=== PATIENT | male | born 1935 | race Caucasian/White ===

== ENCOUNTER 2021-09-23 01:12 | Observation (INO) | payer OTHER, SELFPAY ==
[2021-09-23] VITALS (18 sets, daily range): BP systolic 112–185; BP diastolic 57–88; PULSE 68–99; RESP 16–23; TEMP 35.7–36.9; O2SAT 95–99; BMI 24.6
--- NOTE | 2021-09-23 01:23 | ED_ITS ---
HPI - Neuro Symptoms/Deficit General Chief Complaint: Neuro Symptoms/Deficit Stated Complaint: might of had a stroke Time Seen by Provider: 09/23/21 01:18 History of Present Illness HPI Narrative: Patient is a pleasant 86-year-old hard of hearing male who has history of diabetes, coronary artery disease with 4 stents, presents with possible stroke. He lives with daughter who states that their mother has had a stroke so they are aware of signs and symptoms. Sometime this evening around 11:00 p.m. she noted that he was a little bit off and she asked him to check his glucose. He had loss of difficulty with his left hand using the glucometer and glucose strips. His she then noticed that he had some left facial droop and garbled speech. Symptoms lasted very briefly under 10 minutes and they have completely resolved now. He took some convincing to come to the ED for evaluation. He now states that he feels fine. He is not taking any aspirin or anti-platelet medication. Related Data Home Medications Medication Instructions Recorded Confirmed finasteride 5 mg tablet 5 mg PO DAILY 09/23/21 09/23/21 metoprolol succinate 25 mg 12.5 mg PO BID 09/23/21 09/23/21 tablet,extended release 24 hr simvastatin 40 mg tablet 40 mg PO BEDTIME 09/23/21 09/23/21 Allergies Allergy/AdvReac Type Severity Reaction Status Date / Time No Known Drug Allergies Allergy Verified 09/23/21 01:23 Review of Systems Review of Systems Narrative: GENERAL: Denies chills, fatigue, malaise, fever, sweats, travel HEENT: Denies sinus pain, ear pain, sore throat, difficulty swallowing, neck pain RESPIRATORY: Denies dyspnea, cough, wheezing, hemoptysis, sputum. CARDIOVASCULAR: Denies chest pain, palpitations, orthopnea, edema GASTROINTESTINAL: Denies nausea, vomiting, abdominal pain, diarrhea, constipation, melena. : Denies dysuria, frequency, incontinence, hematuria, urinary retention, flank pain. MUSCULOSKELETAL: Denies weakness, joint pain, or bony pain SKIN: No rash, no erythema, no pruritus NEUROLOGIC: See HPI PSYCHIATRIC: No concerning psychosocial issues. 12 point review of systems is negative except for those stated above and HPI Patient History Medical History (Updated 09/23/21 @ 05:11 by FRANKIE Schreiber) Dyslipidemia Essential hypertension Type 1 diabetes Surgical History (Updated 09/23/21 @ 05:11 by FRANKIE Schreiber) Circumcision complication Hx of heart artery stent Social History Smoking Status: Never smoker alcohol intake: never Exam Initial Vital Signs Initial Vital Signs: Vital Signs Temperature 97.7 F 09/23/21 01:20 Pulse Rate 91 H 09/23/21 01:20 Respiratory Rate 17 09/23/21 01:20 Blood Pressure 112/58 L 09/23/21 01:20 Pulse Oximetry 97 09/23/21 01:20 Oxygen Delivery Method 09/23/21 01:20 GENERAL: Alert pleasant 86-year-old male HEENT: Head atraumatic,EOMI, pupils reactive, face symmetric, moist mucous membranes CARDIOVASCULAR: Regular rate and rhythm without murmurs, rubs or gallops. RESPIRATORY: Breath sounds equal bilaterally, no wheezes rales or rhonchi. ABDOMEN: Soft, nontender. Normoactive bowel sounds all 4 quadrants. No guarding or rebound. EXTREMITIES: Normal range of motion, no clubbing or edema. Neurovascularly intact NEUROLOGICAL: Alert and oriented x4.Normal gait and speech. Cranial nerves II through XII grossly intact. Good qbwrsm-[id number], good riqh-[id number], strength equal bilaterally, no dysarthria or aphasia, sensation in tact to soft touch bilaterally, no visual changes, no facial droop SKIN: Warm, dry, no laceration, no petechiae, no rashes or lesions. Scores NIH Stroke Scale Level of Conciousness: Alert, keenly responsive Ask month/age: Answers both questions correctly. Open/close eyes, close hand: Performs both tasks correctly Best gaze horizontal: Normal Visual hoang: No visual loss Facial palsy: Normal symetrical movement Left arm drift: No drift for full 10 sec Right arm drift: No drift for full 10 sec Left leg drift: No drift for full 5 sec Right leg drift: No drift for full 5 sec Limb ataxia: Absent Sensory on face/arms/legs: Normal, no sensory loss Best language: No aphasia, normal Dysarthria: Normal Extinction or inattention: No abnormality Total NIH Stroke scale score: 0 Course Orders Ordered: ED Orders 09/23/21 01:23 Complete Blood Count AUTO DIFF Stat Comprehensive Metabolic Panel Stat Troponin & CK Cardiac Panel Stat 09/23/21 01:34 CT angio head and neck Stat CT head/brain wo con Stat 09/23/21 01:35 Chest [XR chest 1V] Stat 09/23/21 03:19 Urinalysis and Microscopic Stat Urine Drug Screen, Rapid Stat Acetaminophen (Acetaminophen 325 Mg Tablet) 650 mg PO Q6HR PRN PRN Reason: Fever/Mild Pain (1-3) Aspirin (Aspirin Ec 81 Mg Tablet) 81 mg PO DAILY [facility] Atorvastatin Calcium (Atorvastatin 20 Mg Tablet) 80 mg PO BEDTIME [facility] Clopidogrel Bisulfate (Clopidogrel 75 Mg Tablet) 75 mg PO DAILY A[facility] Dextrose (Dextrose 50 % In Water 25 Gm/50 Ml Syringe) 25 gm IV PRN PRN PRN Reason: Hypoglycemia Enoxaparin Sodium (Enoxaparin 40 Mg/0.4 Ml Syringe) 40 mg SUBCUT DAILY [facility] Insulin Glargine (Insulin Glargine 100 Unit/Ml 3ml Pen) 26 unit SUBCUT BEDTIME [facility] Insulin Human Lispro (Insulin Lispro 100 Unit/Ml 3ml Vial) 0 unit SUBCUT ACHS ADEOLA; Protocol Naloxone HCl (Naloxone 0.4 Mg/Ml Vial) 0.2 mg IV Q2MIN PRN PRN Reason: Opiate Reversal Discontinued Medications Aspirin (Aspirin 81 Mg Chew Tab) 324 mg PO NOW ONE Stop: 09/23/21 03:54 Last Admin: 09/23/21 03:59 Dose: 324 mg Documented By: TEAGAN Vital Signs Vital signs: Vital Signs - 8 hr 09/23/21 01:20 09/23/21 01:20 09/23/21 01:30 Temperature 97.7 F Pulse Rate 91 H 96 H 89 Respiratory Rate 17 Blood Pressure 112/58 L Pulse Oximetry 97 95 97 Oxygen Delivery Method Room Air 09/23/21 01:37 09/23/21 01:37 09/23/21 02:00 Temperature Pulse Rate 86 Respiratory Rate Blood Pressure 150/73 H 113/58 L Pulse Oximetry 98 Oxygen Delivery Method 09/23/21 02:00 09/23/21 02:27 09/23/21 02:27 Temperature Pulse Rate 80 80 Respiratory Rate 20 Blood Pressure 159/77 H Pulse Oximetry 98 98 Oxygen Delivery Method 09/23/21 02:30 09/23/21 02:30 09/23/21 03:00 Temperature Pulse Rate 79 81 Respiratory Rate Blood Pressure 150/74 H Pulse Oximetry 99 97 Oxygen Delivery Method 09/23/21 03:01 09/23/21 03:01 09/23/21 03:17 Temperature Pulse Rate 81 Respiratory Rate Blood Pressure 154/68 H 166/72 H Pulse Oximetry 97 Oxygen Delivery Method 09/23/21 03:17 09/23/21 03:30 09/23/21 03:31 Temperature Pulse Rate 99 H 84 85 Respiratory Rate 23 23 20 Blood Pressure Pulse Oximetry 96 96 96 Oxygen Delivery Method 09/23/21 03:31 Temperature Pulse Rate Respiratory Rate Blood Pressure 118/57 L Pulse Oximetry Oxygen Delivery Method MDM - Neuro Symptoms/Deficit Lab Data Result diagrams: 09/23/21 01:23 09/23/21 01:23 Labs: Lab Results 09/23/21 09/23/21 09/23/21 Range/Units 01:23 01:23 01:23 WBC 9.8 (4.5-11.0) X10^3/uL RBC 4.09 L (4.5-5.9) X10^6/uL Hgb 12.6 L (13.5-17.5) g/dL Hct 36.4 L (41-53) % MCV 88.8 (80-100) fL MCH 30.8 (26-34) PG MCHC 34.7 (30-36) % RDW 13.8 (11.6-14.8) % Plt Count 252 (150-400) X10^3/uL Neut % (Auto) 55.3 (50-75) % Lymph % (Auto) 27.5 (25-40) % [place] % (Auto) 12.8 (3-14) % Eos % (Auto) 3.5 (2-4) % Baso % (Auto) 0.9 (0-2) % Neut # (Auto) 5400 (4413-5911) /uL Lymph # (Auto) 2700 (0346-8995) /uL [place] # (Auto) 1300 H (0-900) /uL Eos # (Auto) 300 (0-450) /uL Baso # (Auto) 100 (0-100) /uL Sodium 130 L (137-145) mmol/L Potassium 4.4 (3.4-5.1) mmol/L Chloride 99 (98-107) mmol/L Carbon Dioxide 19 L (22-32) mmol/L BUN 37 H (9-20) mg/dL Creatinine 1.84 H (0.66-1.25) mg/dL Estimated GFR 35 L (>60) mL/min BUN/Creatinine Ratio 20.1 (6-22) Glucose 148 H (80-110) mg/dL Calcium 9.2 (8.4-10.2) mg/dL Total Bilirubin 0.7 (0.2-1.3) mg/dL AST 33 (17-59) IU/L ALT 22 (<50) IU/L Alkaline Phosphatase 93 (38-126) U/L Total Creatine Kinase 99 (55-170) U/L CK-MB (CK-2) TNP CK-MB (CK-2) Rel Index TNP Troponin I < 0.012 (0.01-0.034) ng/mL Total Protein 7.5 (6.3-8.2) g/dL Albumin 3.8 (3.5-5.0) g/dL Globulin 3.7 (1.7-4.1) g/dL Albumin/Globulin Ratio 1.0 (1.0-2.8) Urine Color Urine Appearance Urine pH (4.5-8.0) Ur Specific [place] (1.000-1.035) Urine Protein (Negative) Urine Glucose (UA) (Negative) g/dL Urine Ketones (NEGATIVE) Urine Occult Blood (Negative) Urine Nitrate (Negative) Urine Bilirubin (NEGATIVE) Urine Urobilinogen (0.2) E.U./dL Ur Leukocyte Esterase (NEGATIVE) Urine RBC (0-5/HPF) Urine WBC (0-5/HPF) Urine Bacteria (None) Ur Culture Indicated? U Opiates 300ng/mL cut (Negative) Ur Oxycodone Screen (Negative) Urine Methadone Screen (Negative) Ur Barbiturates Screen (Negative) U Tricyclic Antidepress (Negative) Ur Phencyclidine Scrn (Negative) Ur Amphetamines Screen (Negative) U Methamphetamines Scrn (Negative) Ur MDMA Scrn (Ecstasy) (Negative) U Benzodiazepines Scrn (Negative) Urine Cocaine Screen (Negative) U Marijuana (THC) Screen (Negative) 09/23/21 09/23/21 Range/Units 03:19 03:19 WBC (4.5-11.0) X10^3/uL RBC (4.5-5.9) X10^6/uL Hgb (13.5-17.5) g/dL Hct (41-53) % MCV (80-100) fL MCH (26-34) PG MCHC (30-36) % RDW (11.6-14.8) % Plt Count (150-400) X10^3/uL Neut % (Auto) (50-75) % Lymph % (Auto) (25-40) % [place] % (Auto) (3-14) % Eos % (Auto) (2-4) % Baso % (Auto) (0-2) % Neut # (Auto) (9455-8969) /uL Lymph # (Auto) (5830-5638) /uL [place] # (Auto) (0-900) /uL Eos # (Auto) (0-450) /uL Baso # (Auto) (0-100) /uL Sodium (137-145) mmol/L Potassium (3.4-5.1) mmol/L Chloride (98-107) mmol/L Carbon Dioxide (22-32) mmol/L BUN (9-20) mg/dL Creatinine (0.66-1.25) mg/dL Estimated GFR (>60) mL/min BUN/Creatinine Ratio (6-22) Glucose (80-110) mg/dL Calcium (8.4-10.2) mg/dL Total Bilirubin (0.2-1.3) mg/dL AST (17-59) IU/L ALT (<50) IU/L Alkaline Phosphatase (38-126) U/L Total Creatine Kinase (55-170) U/L CK-MB (CK-2) CK-MB (CK-2) Rel Index Troponin I (0.01-0.034) ng/mL Total Protein (6.3-8.2) g/dL Albumin (3.5-5.0) g/dL Globulin (1.7-4.1) g/dL Albumin/Globulin Ratio (1.0-2.8) Urine Color Yellow Urine Appearance Clear Urine pH 6.5 (4.5-8.0) Ur Specific [place] <=1.005 (1.000-1.035) Urine Protein Negative (Negative) Urine Glucose (UA) Trace H (Negative) g/dL Urine Ketones Negative (NEGATIVE) Urine Occult Blood 1+ H (Negative) Urine Nitrate Negative (Negative) Urine Bilirubin Negative (NEGATIVE) Urine Urobilinogen 0.2 (0.2) E.U./dL Ur Leukocyte Esterase Negative (NEGATIVE) Urine RBC None seen (0-5/HPF) Urine WBC None seen (0-5/HPF) Urine Bacteria None seen (None) Ur Culture Indicated? Cult not indicated U Opiates 300ng/mL cut Negative (Negative) Ur Oxycodone Screen Negative (Negative) Urine Methadone Screen Negative (Negative) Ur Barbiturates Screen Negative (Negative) U Tricyclic Antidepress Negative (Negative) Ur Phencyclidine Scrn Negative (Negative) Ur Amphetamines Screen Negative (Negative) U Methamphetamines Scrn Negative (Negative) Ur MDMA Scrn (Ecstasy) Negative (Negative) U Benzodiazepines Scrn Negative (Negative) Urine Cocaine Screen Negative (Negative) U Marijuana (THC) Screen Negative (Negative) Urine Dip Bedside Urine Glucose Negative Bedside Urine Bilirubin - Negative Bedside Urine Ketone - Negative Urine Specific [place] 1.010 Bedside Urine Occult Blood +/- Bedside Urine pH 6.0 Bedside Urine Protein - Negative Bedside Urine Urobilinogen - Negative Bedside Urine Nitrite - Negative Bedside Urine Leukocytes - Negative Esterase Imaging Data CT scan - head: Radiologist's Impression: No acute intracranial finding CTA - brain/neck: Radiologist's Impression: Pain head and neck CTA Chest x-ray: Radiologist's Impression: No acute finding ECG Data Interpretation: Normal sinus rhythm rate 82 VT interval 178 QRS [address] changes MDM Narrative Medical decision making narrative: Patient is risk for TIA and stroke. He has diabetes and coronary artery disease. He is not taking aspirin daily. Based on history he probably had a TIA. However symptoms have resolved he is no longer a tPA candidate. Imaging and workup in the emergency department is overall reassuring. He is given aspirin in the ED. Catalina Fisher accepts for observation Discharge Plan Departure Patient Disposition: Admitted as Observation Clinical Impression: Transient cerebral ischemia Admit Date/Time: 09/23/21 03:39 Admit Provider: Albertina Fisher
--- NOTE | 2021-09-23 01:34 | DI.CT.S_ITS ---
PROCEDURE: CT HEAD/BRAIN WO CON INDICATIONS: left hand weakness now resolved TECHNIQUE: Noncontrast 4.5 mm thick angled axial sections acquired from the foramen magnum to the vertex, with coronal and sagittal reformats. For radiation dose reduction, the following was used: automated exposure control, adjustment of mA and/or kV according to patient size. COMPARISON: [facility], CT, CT ANGIO HEAD AND NECK, 09/23/2021, 1:38. [facility], MR, MR BRAIN WITHOUT CONTRAST, 05/31/2018, 12:43. FINDINGS: Image quality: Excellent. CSF spaces: Basal cisterns are patent. No extra-axial fluid collections. The ventricles are symmetric in size and shape. Brain: No intracranial bleeds or masses. There is cerebral volume loss for age, with resultant ventricular and sulcal prominence. There are periventricular and deep white matter chronic small vessel ischemic changes. There is intracranial internal carotid artery and vertebral artery atherosclerosis. Skull and face: Calvarium and visualized facial bones appear intact, without suspicious lesions. Sinuses: Visualized sinuses and mastoids are clear. IMPRESSION: No acute intracranial disease process. Dictated by: Gloria Resendez MD, PhD on 09/23/2021 at 7:30 Approved by: Gloria Resendez MD, PhD on 09/23/2021 at 7:31
--- NOTE | 2021-09-23 01:34 | DI.CT.S_ITS ---
PROCEDURE: CT ANGIO HEAD AND NECK INDICATIONS: left hand weakness now resolved TECHNIQUE: After the administration of intravenous contrast, 1 mm thick sections acquired from the aortic arch through the [place] of [place]. Post-contrast 4.5 mm thick sections then re-acquired from the foramen magnum to the vertex. 3-dimensional vaxhbdw-kgqntbkjh-wlaqnaehur (MIP) and/or volume rendering reformats were acquired of the central intracranial vasculature and neck separately. For radiation dose reduction, the following was used: automated exposure control, adjustment of mA and/or kV according to patient size. COMPARISON: [facility], CT, CT HEAD/BRAIN WO CON, 09/23/2021, 1:38. FINDINGS: Image quality: Excellent. BRAIN: CSF spaces: Ventricles are normal in size and shape. Basal cisterns are patent. No extra-axial fluid collections. Brain: No midline shift. No intracranial bleeds or masses. [place]-white matter interface appears intact. Skull and face: Calvarium and facial bones appear intact, without suspicious lesions. Orbits appear normal. Sinuses: Mild mucosal thickening noted in the left maxillary sinus. The mastoids are clear. HEAD CT ANGIOGRAPHY: Anterior circulation: Intracranial internal carotid arteries are normal in flow. Dense atherosclerotic calcifications noted distal petrous, cavernous and clinoid segments of the internal carotid arteries bilaterally which causes [id number] narrowing of the vessels. The flow within the paired anterior cerebral arteries is normal and symmetric. The flow within the middle cerebral arteries is normal and symmetric. The anterior communicating artery is seen. No aneurysms are seen. Posterior circulation: Visualized portions of the vertebral arteries demonstrate normal caliber, and join to form a normal appearing basilar artery. Flow within the posterior cerebral arteries is normal and symmetric. No aneurysms are seen. Dural sinuses demonstrate normal postcontrast enhancement. NECK CT ANGIOGRAPHY: Carotid system: The great vessels demonstrate a conventional anatomy as they arise from the aortic arch. The origins of the common carotid arteries appear patent. The common carotid arteries demonstrate normal caliber and courses. Atherosclerotic calcifications noted in the origins of the internal carotid arteries bilaterally which causes less than 50% stenosis of the vessels. Posterior circulation: The origins of the vertebral arteries both appear widely patent. The more superior extracranial portions of both vertebral arteries also demonstrate normal courses and calibers. They join to form a normal appearing basilar artery. Soft tissues: Visualized neck soft tissues demonstrate no suspicious abnormalities. Paraseptal emphysema noted in the lung apices. 6 millimeter calcified granuloma in the left lung apex. 4 millimeter calcified granuloma in the left upper lobe. 3 millimeter calcified granuloma in the right upper lobe. Bones: No suspicious bony lesions. Spine degenerative disc disease and facet arthropathy. Visualized cervical spine appears normally aligned. IMPRESSION: 1. No acute intracranial disease process. 2. No large vessel occlusion, hemodynamically significant vascular stenosis, vascular dissection or aneurysm. Any quantitative measurements of stenosis were performed using NASCET criteria. Dictated by: Gloria Resendez MD, PhD on 09/23/2021 at 7:44 Approved by: Gloria Resenedz MD, PhD on 09/23/2021 at 7:50
--- NOTE | 2021-09-23 01:35 | DI.RAD.S_ITS ---
PROCEDURE: XR CHEST 1V INDICATIONS: probable TIA TECHNIQUE: One view of the chest was acquired. COMPARISON: [facility], CR, XR CHEST 1 VIEW, 04/15/2020, 21:05. FINDINGS: Surgical changes and devices: None. Lungs and pleura: Lungs are clear. Subcentimeter calcified granuloma in the left lung base. No pleural effusions or pneumothorax. Mediastinum: Mediastinal contours appear normal. Heart size is normal. Bones and chest wall: No suspicious bony lesions. Overlying soft tissues appear unremarkable. IMPRESSION: No acute cardiopulmonary disease process. Dictated by: Gloria Resendez MD, PhD on 09/23/2021 at 7:32 Approved by: Gloria Resendez MD, PhD on 09/23/2021 at 7:33
[2021-09-23 01:49] LABS: Alanine Aminotransferase 22 IU/L (<50); Albumin 3.8 g/dL (3.5-5.0); Alkaline Phosphatase 93 U/L (38-126); Aspartate Aminotransferase 33 IU/L (17-59); BUN Creatinine Ratio 20.1 (6-22); Bilirubin Total 0.7 mg/dL (0.2-1.3); Blood Urea Nitrogen 37 mg/dL (9-20); Calcium 9.2 mg/dL (8.4-10.2); Carbon Dioxide 19 mmol/L (22-32); Chloride 99 mmol/L (98-107); Creatine Kinase 99 U/L (55-170); Estimated Glomerular Filt Rate 35 mL/min (>60); Globulin 3.7 g/dL (1.7-4.1); Glucose 148 mg/dL (80-110); HEMOLYSIS 15 (0-50); Potassium 4.4 mmol/L (3.4-5.1); Sodium 130 mmol/L (137-145); Total Protein 7.5 g/dL (6.3-8.2)
[2021-09-23 01:54] LABS: Add Manual Diff / Slide Review NO; Basophils Absolute Auto 100 /uL (0-100); Basophils Percent Auto 0.9 % (0-2); Eosinophils Absolute Auto 300 /uL (0-450); Eosinophils Percent Auto 3.5 % (2-4); Hematocrit 36.4 % (41-53); Hemoglobin 12.6 g/dL (13.5-17.5); Lymphocytes Absolute Auto 2700 /uL (1100-4500); Lymphocytes Percent Auto 27.5 % (25-40); Mean Corpuscular HGB Conc 34.7 % (30-36); Mean Corpuscular Hemoglobin 30.8 PG (26-34); Mean Corpuscular Volume 88.8 fL (80-100); Monocytes Absolute Auto 1300 /uL (0-900); Monocytes Percent Auto 12.8 % (3-14); Neutrophils Absolute Auto 5400 /uL (1500-7000); Neutrophils Percent Auto 55.3 % (50-75); Platelet Count 252 X10^3/uL (150-400); Red Blood Cell Count 4.09 X10^6/uL (4.5-5.9); Red Cell Distribution Width 13.8 % (11.6-14.8); White Blood Cell Count 9.8 X10^3/uL (4.5-11.0)
[2021-09-23 02:01] LABS: Troponin I < 0.012 ng/mL (0.01-0.034)
[2021-09-23 03:30] LABS: Appearance Urine UA CLEAR; Bilirubin Urine UA NEGATIVE (NEGATIVE); Color Urine UA YELLOW; Glucose Urine UA TRACE g/dL (Negative); Ketones Urine UA NEGATIVE (NEGATIVE); Leukocyte Esterase Urine UA NEGATIVE (NEGATIVE); Nitrite Urine UA NEGATIVE (Negative); Occult Blood Urine UA 1+ (Negative); Protein Urine UA NEGATIVE (Negative); Specific Gravity Urine UA <=1.005 (1.000-1.035); Urobilinogen Urine UA 0.2 E.U./dL (0.2); pH Urine UA 6.5 (4.5-8.0)
[2021-09-23 03:34] LABS: Ur Creatinine 20 (Normal); Ur Specific Gravity 1.015 (Normal); Urine pH 5 (Normal)
[2021-09-23 03:35] LABS: UR Morphine/Opiate cutoff 300 Negative (Negative); Urine Amphetamines Negative (Negative); Urine Barbiturates Negative (Negative); Urine Benzodiazepines Negative (Negative); Urine Cocaine Negative (Negative); Urine MDMA Negative (Negative); Urine Methadone Negative (Negative); Urine Methamphetamines Negative (Negative); Urine Oxycodone Negative (Negative); Urine Phencyclidine Negative (Negative); Urine Tetrahydrocannabinol Negative (Negative); Urine Tricyclic Antidepressant Negative (Negative)
[2021-09-23 03:44] LABS: Bacteria Urine None Seen; RBC Urine None Seen (0-5/HPF); WBC Urine None Seen (0-5/HPF)
[2021-09-23 03:45] LABS: Culture Indicated Urine Cult Not Indicated
--- NOTE | 2021-09-23 03:55 | DI.ECHO.S_ITS ---
[place] +---------+ Hospital +---------+ : : [address] : : : : [id number] : : : : Phone: [phone] Echocardiogram Report + + :Name: VALARIE PIZANO Study Date: 09/23/2021 Height: 74 in : :[facility] ReadingLocation: Weight: 197 lb : : Gender: Male BSA: 2.2 m2 : :: 1935 Age: 86 yrs BP: 118/57 mmHg: :Reason For Study: TIA VS CVA, METAL STENTS : :Ordering Physician: Kieran HERNANDEZformed By: Shanna Nance : :Referring: DOROTEO HERNANDEZ : + + Interpretation Summary The ejection fraction is estimated to be 60-65%. There is mild mitral regurgitation. There is moderate aortic stenosis. There is mild aortic regurgitation. The aortic valve mean gradient is 21 mmHg. Procedure: A two-dimensional transthoracic echocardiogram with color flow and Doppler was performed. The study quality was technically adequate. Comparison is made with the echocardiogram of 05/30/2018. The patient was in sinus rhythm with heart rates between 74-103 bpm during the exam. Left Ventricle: The left ventricle is normal in size. There is mild concentric left ventricular hypertrophy. The ejection fraction is estimated to be 60-65%. Left ventricular wall motion is normal. Right Ventricle: The right ventricle is normal size. Right ventricular systolic function is at the lower limits of normal. Atria: The left atrial size is normal. Right atrial size is normal. There is no Doppler evidence for an interatrial shunt. Mitral Valve: The mitral valve leaflets are mildly calcified. There is mild mitral regurgitation. Aortic Valve: The aortic valve is moderately calcified. There is moderately reduced leaflet mobility. There is moderate aortic stenosis. The peak aortic velocity is 3.0 m/sec. The aortic valve mean gradient is 21 mmHg. The calculated aortic valve area is 1.7 cm2. There is mild aortic regurgitation. Tricuspid Valve: The tricuspid valve is normal in structure and function. No tricuspid regurgitation. Pulmonic Valve: The pulmonic valve is not well seen, but is grossly normal. There is trace pulmonic regurgitation. Great Vessels: The aortic root is normal size. The ascending aorta could not be visualized. The IVC is of normal diameter and collapses greater than 50% with a sniff. This suggests a low right atrial pressure of 3 mm Hg. Pericardium/ Pleura There is no pericardial effusion. There is no pleural effusion. MMode/2D Measurements & Calculations LVIDd: 4.9 cm LVOT diam: 2.2 cm LVIDs: 3.1 cm Ao root diam: 3.8 cm FS: 36.3 % Ao Arch Diam (Prox Trans): 3.0 cm IVSd: 1.0 cm LVPWd: 1.1 cm LV arroyo. diameter/BSA (cm/m^2): 2.3 LV sys. diameter/BSA (cm/m^2): 1.5 LA A2 area: 22.5 cm2 RA long axis: 5.1 cm LA A4 area: 18.2 cm2 RA area: 14.8 cm2 LA length (vol): 5.3 cm RA vol: 36.1 ml LA vol: 65.8 ml RA : 16.7 ml/m2 LA vol index: 30.5 ml/m2 IVC diam: 1.4 cm RVD1 (basal): 3.5 cm RVD2 (mid): 3.3 cm TAPSE: 1.6 cm Doppler Measurements & Calculations Ao V2 max: 301.3 cm/sec LVOT Max Marcial: 128.2 cm/sec Ao V2 mean: 210.4 cm/sec LV V1 max P.6 mmHg Ao max P.3 mmHg LV V1 VTI: 27.6 cm Ao mean P.6 mmHg JOSE LUIS(I,D): 1.8 cm2 Ao V2 VTI: 60.2 cm JOSE LUIS(V,D): 1.7 cm2 sev ratio: 0.46 JOSE LUIS indexed to BSA (cm^2/m^2): 0.83 MV E max marcial: 72.8 cm/sec PA V2 max: 108.8 cm/sec MV A max marcial: 92.0 cm/sec PA V2 mean: 77.3 cm/sec MV E/A: 0.79 PA mean P.6 mmHg Med Peak E' Marcial: 5.2 cm/sec E/E' med: 13.9 Lat Peak E' Marcial: 7.8 cm/sec E/E' lat: 9.3 E/e' average: 11.6 MV dec time: 0.26 sec SV(LVOT): 107.5 ml Reading Physician:01:55 PM
--- NOTE | 2021-09-23 03:57 | P.HP_ITS ---
History of Present Illness History of Present Illness Date Patient Seen: 09/23/21 Time Patient Seen: 04:30 Chief complaint: Suspected CVA Narrative: Patrick Buck is an 86-year-old hard of hearing male who has history of diabetes, coronary artery disease with 4 stents, presents with a possible stroke.? He lives with daughter who states that their mother has had a stroke so they are aware of signs and symptoms.? Sometime this evening around 11:00 p.m. she noted that he was a little bit off and she asked him to check his glucose.? He is right handed, but for some reason used his left hand to check his glucose and had difficulty with his left hand using the glucometer and glucose strips.? She then noticed that he had some left facial droop and garbled speech.? Symptoms lasted very briefly under 10 minutes, completely resolved by time of arrival to the ED.? He took some convincing to come to the ED for evaluation.? He now states that he feels fine.? He is not taking any aspirin or anti-platelet medication. ROS positive for urinary leakage as a result of an adult circumcision in the past year, chronic constipation he treats with stool softeners, neuropathy of both big toes he states is treated by one of his medications which he does not recall. Has had a history of surgeries to the right hip, knees which he states he needs to have the pins removed and was denied by [facility]. Denies headache, difficulty swallowing, chest pain, shortness of breath, or abdominal pain. States he normally sees a pharmacist for his diabetic medication management and was previously seeing them almost every month, and of late, has not seen and is due this week for an A1c draw. States he injects 26 units of the slow acting insulin and a sliding scale plus or minus 1 if he is below or exceeds a glucose of 150 with varying amounts with meals. Has 4 metal stents, states he recalls he has had echocardiograms, but does not remember what the results where or when last done. He sees a diagnostic tech at the [facility], but does not recall their name. Head CT, head and neck CTA and cxr were all reported to me to be negative by the ED provider. Patient is afebrile, blood pressure 118/57, heart rate 85, respiratory rate 20, oxygen saturation 96% on room air he weighs 87 kg with a BMI of 24.7. He has a mild anemia with a hemoglobin hematocrit of 12.6 and 36.4 respectively, sodium is low at 130, bicarb 19, creatinine 1.84 unknown if this is his baseline, with a EGFR 35, glucose 148, A1c is pending, UA is negative for UTI, urine toxicology is negative and COVID-19 PCR is negative. Patient History Medical History (Updated 09/23/21 @ 05:11 by FRANKIE Schreiber) Dyslipidemia Essential hypertension Type 1 diabetes Surgical History (Updated 09/23/21 @ 05:11 by FRANKIE Schreiber) Circumcision complication Hx of heart artery stent Family & Social History Safety & Behavioral: Feels Safe in Current Yes Environment Tobacco & Substance use: Smoking Status former smoker, quit 1976 alcohol intake frequency denies consumption Substance Use Type does not use Meds Home Medications and Allergies Home Medications Medication Instructions Recorded Confirmed Type finasteride 5 mg tablet 5 mg PO DAILY 09/23/21 09/23/21 History metoprolol succinate 25 mg 12.5 mg PO BID 09/23/21 09/23/21 History tablet,extended release 24 hr simvastatin 40 mg tablet 40 mg PO BEDTIME 09/23/21 09/23/21 History Allergies Allergy/AdvReac Type Severity Reaction Status Date / Time No Known Drug Allergies Allergy Verified 09/23/21 01:23 Review of Systems Review of Systems ROS: Yes All systems reviewed with the patient and are negative except as otherwise documented Exam Vital Signs (past 8 hours): - 09/23/21 01:20 09/23/21 01:20 09/23/21 01:30 Temperature 97.7 F Pulse Rate 91 H 96 H 89 Respiratory Rate 17 Blood Pressure 112/58 L Pulse Oximetry 97 95 97 Oxygen Delivery Method Room Air 09/23/21 01:37 09/23/21 01:37 09/23/21 02:00 Temperature Pulse Rate 86 Respiratory Rate Blood Pressure 150/73 H 113/58 L Pulse Oximetry 98 Oxygen Delivery Method 09/23/21 02:00 09/23/21 02:27 09/23/21 02:27 Temperature Pulse Rate 80 80 Respiratory Rate 20 Blood Pressure 159/77 H Pulse Oximetry 98 98 Oxygen Delivery Method 09/23/21 02:30 09/23/21 02:30 09/23/21 03:00 Temperature Pulse Rate 79 81 Respiratory Rate Blood Pressure 150/74 H Pulse Oximetry 99 97 Oxygen Delivery Method 09/23/21 03:01 09/23/21 03:01 09/23/21 03:17 Temperature Pulse Rate 81 Respiratory Rate Blood Pressure 154/68 H 166/72 H Pulse Oximetry 97 Oxygen Delivery Method 09/23/21 03:17 09/23/21 03:30 09/23/21 03:31 Temperature Pulse Rate 99 H 84 85 Respiratory Rate 23 23 20 Blood Pressure Pulse Oximetry 96 96 96 Oxygen Delivery Method 09/23/21 03:31 Temperature Pulse Rate Respiratory Rate Blood Pressure 118/57 L Pulse Oximetry Oxygen Delivery Method Oxygen Delivery Method Room Air Narrative Exam Narrative: Gen: Alert, oriented, well-developed 86 y.o. male, very heard of hearing HEENT: normocephalic, atraumatic, conjunctiva clear, sclera non-icteric, oral mucosa pink and moist Neck: supple, full ROM, JVD more prominent on the right, trachea is midline, bilateral bruits Resp: Lungs CTA, non-labored breathing CV: Grade 3/6 systolic murmurs all hoang Abd: soft, non-tender, normoactive BTs Skin: no lesions or rashes, dry and intact Neuro: Alert and oriented X 4 w/no focal deficits. Speech clear and coherent. Extremities: moves all 4 extremities, is ambulatory, negative Figueroa?s sign Psyche: very pleasant, normal mood and affect. Objective Labs Result Diagrams: 09/23/21 01:23 09/23/21 01:23 Labs: Laboratory Results - last 24 hr 09/23/21 09/23/21 09/23/21 01:23 01:23 01:23 WBC 9.8 RBC 4.09 L Hgb 12.6 L Hct 36.4 L MCV 88.8 MCH 30.8 MCHC 34.7 RDW 13.8 Plt Count 252 Neut % (Auto) 55.3 Lymph % (Auto) 27.5 [place] % (Auto) 12.8 Eos % (Auto) 3.5 Baso % (Auto) 0.9 Neut # (Auto) 5400 Lymph # (Auto) 2700 [place] # (Auto) 1300 H Eos # (Auto) 300 Baso # (Auto) 100 Sodium 130 L Potassium 4.4 Chloride 99 Carbon Dioxide 19 L BUN 37 H Creatinine 1.84 H Estimated GFR 35 L BUN/Creatinine Ratio 20.1 Glucose 148 H Calcium 9.2 Total Bilirubin 0.7 AST 33 ALT 22 Alkaline Phosphatase 93 Total Creatine Kinase 99 CK-MB (CK-2) TNP CK-MB (CK-2) Rel Index TNP Troponin I < 0.012 Total Protein 7.5 Albumin 3.8 Globulin 3.7 Albumin/Globulin Ratio 1.0 Urine Color Urine Appearance Urine pH Ur Specific [place] Urine Protein Urine Glucose (UA) Urine Ketones Urine Occult Blood Urine Nitrate Urine Bilirubin Urine Urobilinogen Ur Leukocyte Esterase Urine RBC Urine WBC Urine Bacteria Ur Culture Indicated? U Opiates 300ng/mL cut Ur Oxycodone Screen Urine Methadone Screen Ur Barbiturates Screen U Tricyclic Antidepress Ur Phencyclidine Scrn Ur Amphetamines Screen U Methamphetamines Scrn Ur MDMA Scrn (Ecstasy) U Benzodiazepines Scrn Urine Cocaine Screen U Marijuana (THC) Screen 09/23/21 09/23/21 03:19 03:19 WBC RBC Hgb Hct MCV MCH MCHC RDW Plt Count Neut % (Auto) Lymph % (Auto) [place] % (Auto) Eos % (Auto) Baso % (Auto) Neut # (Auto) Lymph # (Auto) [place] # (Auto) Eos # (Auto) Baso # (Auto) Sodium Potassium Chloride Carbon Dioxide BUN Creatinine Estimated GFR BUN/Creatinine Ratio Glucose Calcium Total Bilirubin AST ALT Alkaline Phosphatase Total Creatine Kinase CK-MB (CK-2) CK-MB (CK-2) Rel Index Troponin I Total Protein Albumin Globulin Albumin/Globulin Ratio Urine Color Yellow Urine Appearance Clear Urine pH 6.5 Ur Specific [place] <=1.005 Urine Protein Negative Urine Glucose (UA) Trace H Urine Ketones Negative Urine Occult Blood 1+ H Urine Nitrate Negative Urine Bilirubin Negative Urine Urobilinogen 0.2 Ur Leukocyte Esterase Negative Urine RBC None seen Urine WBC None seen Urine Bacteria None seen Ur Culture Indicated? Cult not indicated U Opiates 300ng/mL cut Negative Ur Oxycodone Screen Negative Urine Methadone Screen Negative Ur Barbiturates Screen Negative U Tricyclic Antidepress Negative Ur Phencyclidine Scrn Negative Ur Amphetamines Screen Negative U Methamphetamines Scrn Negative Ur MDMA Scrn (Ecstasy) Negative U Benzodiazepines Scrn Negative Urine Cocaine Screen Negative U Marijuana (THC) Screen Negative Assessment & Plan Assessment & Plan narrative: Patrick Buck is placed into observation for further evaluation of a suspected TIA. Suspected TIA * Cardiac telemetry * NIH score greater than 5 []yes [X]no, ? NIH scoring and neuro checks q 4 hours * Dual antiplatelet therapy: Yes Xinitiate dual antiplatelet therapy with clopidogrel 75 mg p.o. daily and aspirin 81 mg p.o. daily * MR stroke scheduled for 09/23 * Complete Echo with bubble study for 09/23 * Consider carotid ultrasound due to presence of bilateral bruits * PT/OT/ST evaluation Hypertension, acute with a peak bp of 166/72, present on admission * Currently normotensive, borderline hypotensive w/a bp of 118/57 * Allow for permissive hypertension for brain profusion of a systolic of 220 and a diastolic of 105. * IV labetolol if his systolic exceeds 220 or diastolic greater than 105. * He normally takes metoprolol 12.5 mg po bid and will continue this HLD * Fasting lipid panel, pending for 0500 labs * Atorvastatin 80 mg po at bedtime, increased from 40 mg Diabetes type 1, chronic, unknown if well controlled * Likely diet controlled as he does not have any anti-diabetic home medications * Glargine 26 units at bedtime * Low dose insulin correctional scale * ACHS poc glucose testing VTE Prophylaxis: Wells risk score 0 [X]Enoxaparin 40 mg subQ once daily Bilateral SCDs Patient is placed into observation as his stay is not expected to exceed 2 midni ghts. FEN: IV fluids: saline lock, diet: carb controlled diet, labs: CBC, C/BMP, liver enzymes, Mag, PT/INR Consultants None Dispo: probable d/c to home Code status: DNR/DNI as discussed with the patient who identifies daughter as his surrogate and POA. [X] I have utilized all available immediate resources to obtain, update, or review of the patient's current medications COVID-19 COVID-19 status: Negative Result date/Date tested (Pos, Neg/Pending): 09/23/21 Time Spent With Patient Critical Care time: I spent a total of [] minutes of critical care time on this patient's care today; this time is exclusive of procedural time. Scores Wells' Criteria for PE Clinical signs and symptoms of DVT: No PE is #1 Dx or equally likely: No Heart rate > 100: No Immobilization at least 3 days or surg in previous 4 weeks: No History of PE or DVT: No Hemoptysis: No Malignancy w/Treatment within 6 months or palliative: No Wells' PE Score total: 0 Quality VTE Deep Vein Thrombosis/Pulmonary Embolism Present on Admission: No MIPS - Admit I confirm the patient?s Advance Care Plan is present, Code status is documented, Surrogate decision maker is in patient?s record [If Yes, STOP here]: No MIPS - DC The patient has current or prior documentation of left ventricular ejection fraction (LVEF) less than 40%, or moderate or severely depressed left ventricular systolic function.: No
[2021-09-23] MEDS: ASPIRIN 81 MG CHEW TAB 324 MG PO (03:59)
[2021-09-23 04:06] LABS: COVID19 -Nasal RAPID Negative (Negative)
[2021-09-23 04:48] LABS: Magnesium 1.9 mg/dL (1.6-2.3)
[2021-09-23 04:51] LABS: Troponin I < 0.012 ng/mL (0.01-0.034)
[2021-09-23 05:22] LABS: Cholesterol 118 mg/dL (140-199); HDL Cholesterol 33 mg/dL (40-60); LDL Cholesterol Calculated 62 mg/dL (<100); Triglycerides 117 mg/dL (35-150)
[2021-09-23 06:44] LABS: Hemoglobin A1C% w Est Avg Glu 6.9 % (4.0-6.0)
[2021-09-23] MEDS: CLOPIDOGREL 75 MG TABLET PO (08:21)
[2021-09-23] MEDS: ASPIRIN EC 81 MG TABLET PO (08:21)
[2021-09-23] MEDS: ENOXAPARIN 40 MG/0.4 ML SYRINGE SUBCUT (08:21)
--- NOTE | 2021-09-23 09:00 | DI.MRI.S_ITS ---
PROCEDURE: MR HEAD/BRAIN WO CON INDICATIONS: TIA vs CVA TECHNIQUE: Non-contrast axial T1 spin echo, axial T2 fast spin echo, sagittal and axial FLAIR, coronal T2 fast spin echo, axial gradient echo, axial diffusion and ADC through the brain. COMPARISON: [facility], MR, MR BRAIN WITHOUT CONTRAST, 05/31/2018, 12:43. FINDINGS: Image quality: Excellent. CSF spaces: Ventricles appear symmetric in size and shape. Basal cisterns are patent. No extra-axial fluid collections. Brain: No intracranial bleeds or mass effects. There is moderate cerebral volume loss for age. There are mild periventricular and deep white matter chronic small vessel ischemic changes. Brainstem appears normal. Diffusion-weighted images show no acute ischemic insults. No chronic ischemic insults. Normal intravascular flow voids are present. Skull and face: Calvarial bone marrow is normal in signal. Orbits are normal. Sinuses: Mild mucosal thickening noted in the left maxillary sinus. The mastoids are clear. IMPRESSION: 1. No acute intracranial disease process. 2. No areas of acute or chronic infarction. 3. No abnormal intracranial mass or mass effect. 4. Moderate, diffuse cerebral volume loss. 5. Mild periventricular and subcortical white matter chronic microvascular ischemic change. Dictated by: Gloria Resendez MD, PhD on 09/23/2021 at 11:15 Approved by: Gloria Resendez MD, PhD on 09/23/2021 at 11:17
--- NOTE | 2021-09-23 10:16 | OT.IP.EVAL ---
Past Medical History (Last Updated 09/23/21 @ 05:11 by FRANKIE Schreiber) Dyslipidemia Essential hypertension Type 1 diabetes Surgical History (Last Updated 09/23/21 @ 05:11 by FRANKIE Schreiber) Circumcision complication Hx of heart artery stent Occupational Therapy Inpatient Evaluation/Re-Eval M1 PT/OT-IP Prior Functional Status Start: 09/23/21 09:29 Freq: NEEDED Status: Active Protocol: Document 09/23/21 11:56 CGR (Rec: 09/23/21 12:11 CGR [id number]) Medical Review Prior Functional Status Medical History Reviewed Yes Communication Pt is an effective verbal communicator but is very [place] and typically wears hearing aides. Pt states that on this visit, he did not bring his hearing aides. Mobility and Gait Pt uses a 4ww for all mobility at baseline. Activities of Daily Living and IADL's Pt was IND in all ADLs prior to admit. Pt states that his grandson does the driving and shopping. Social History Household Members other Living Arrangements House Number of Floors (Floors) One Floor Number of Stairs To Enter/Railing? ramp to enter Home Environment High Toilet,Walk in Shower Home Equipment Front Wheel Walker,Four Wheel Walker,Straight Cane,Shower Seat with Backrest,Hand Held Shower,Grab Bars Near Toilet, Grab Bars In Shower Employment Status Retired Additional Social History Comment Pt lives with his 26 yo grand son who does all of the driving and grocery shopping. They both cook and clean. M1 PT/OT-IP Prior Functional Status Start: 09/23/21 11:56 Freq: NEEDED Status: Active Protocol: Document 09/23/21 11:56 CGR (Rec: 09/23/21 12:11 CGR [id number]) Medical Review Prior Functional Status Medical History Reviewed Yes Communication Pt is an effective verbal communicator but is very [place] and typically wears hearing aides. Pt states that on this visit, he did not bring his hearing aides. Mobility and Gait Pt uses a 4ww for all mobility at baseline. Activities of Daily Living and IADL's Pt was IND in all ADLs prior to admit. Pt states that his grandson does the driving and shopping. Social History Household Members other Living Arrangements House Number of Floors (Floors) One Floor Number of Stairs To Enter/Railing? ramp to enter Home Environment High Toilet,Walk in Shower Home Equipment Front Wheel Walker,Four Wheel Walker,Straight Cane,Shower Seat with Backrest,Hand Held Shower,Grab Bars Near Toilet, Grab Bars In Shower Employment Status Retired Additional Social History Comment Pt lives with his 26 yo grand son who does all of the driving and grocery shopping. They both cook and clean. M2 OT-IP Current Condition Start: 09/23/21 11:56 Freq: Status: Active Protocol: Document 09/23/21 11:56 CGR (Rec: 09/23/21 12:11 CGR [id number]) Occupational Therapy Current Condition Current Condition Evaluation Date 09/23/21 Treatment Diagnosis possible TIA Diagnosis Onset Date 09/23/21 M3 OT- IP Subjective and Pain Start: 09/23/21 11:56 Freq: Status: Active Protocol: Document 09/23/21 11:56 CGR (Rec: 09/23/21 12:11 CGR [id number]) OT- Subjective Occupational Therapy Visit Type Type Initial Evaluation Visit Start Time 09:50 Visit Stop Time 10:16 Total Visit Minutes 26 OT Pain Assessment Pain When Pain Assessed At Rest Pain Present Pain Present Denied Pain M4 OT- IP ADL's Start: 09/23/21 11:56 Freq: Status: Active Protocol: Document 09/23/21 11:56 CGR (Rec: 09/23/21 12:11 CGR [id number]) OT [id number] Comments OT Self-Feeding Comments not meal time OT ADL-Grooming Comments OT Grooming Comments pt declined OT ADL-Oral Care Comments Oral Care Comments pt declined, states he already performed after breakfast. OT ADL-Dressing General Eval Lower Body Dressing Ability Independent Areas Needing Assistance Socks Comments OT Dressing Comments seated EOB OT ADL-Toileting General Evaluation Toileting Ability Standby Assistance Comments OT Toileting Comments urinated seated on toielt OT ADL-Bathing Comments OT Bathing Comments not performed M5 OT- IP IADL's Start: 09/23/21 11:56 Freq: Status: Active Protocol: Document 09/23/21 11:56 CGR (Rec: 09/23/21 12:11 CGR [id number]) OT-Instrumental Activities of Daily Living Deficits IADL Deficits Identified No Deficits Home Safety Awareness Awareness of Need for Assistance at Home Good Awareness Ability to Problem Solve Emergency Able to Problem Solve Situations Medication Management Medication Management No Deficits Identified Money Management Money Management No Deficits Identified Meal Preparation Meal Preparation No Deficits Identified Suede Brusher Suede Brusher No Deficits Identified M6 OT- IP Functional Cognition Start: 09/23/21 11:56 Freq: Status: Active Protocol: Document 09/23/21 11:56 CGR (Rec: 09/23/21 12:11 R [id number]) Cognitive Factors Limiting Selfcare Function Cognitive Ability Level of Alertness Alert Patient Orientation Name,Age,Birthday,Month,Date, Year,Day of Week,Place, Situation Attention Span Ability Capable of Focused Attention, Capable of Sustained Attention Ability to Follow Commands Able to Follow Multi-Step Commands OT- Vision and Hearing OT- Hearing Assessment OT- Hearing Assessment Hearing Impaired,Use of Hearing Aids OT- Vision Assessment Visual Acuity Glasses All The Time Visual Attentiveness WFL Occular Pursuits WFL Visual Convergence WFL Vision Assessment Comments pt wears bifocals. M7 OT- IP Mobility and Balance Start: 09/23/21 11:56 Freq: Status: Active Protocol: Document 09/23/21 11:56 CGR (Rec: 09/23/21 12:11 R [id number]) OT- Bed Mobility Assessment Supine to Sit Supine to Sit Assist Independent Scooting Scooting to Edge of Bed Independent OT-Transfer Assessment Sit to and From Stand Sit to and from Stand Independent,Standby Assistance Transfers Transfer Ability Independent,Standby Assistance Technique Transfer Destination Bed,Chair,Toilet Transfer Technique Stand Step Pivot Devices Transfer Assistive Devices Gait Belt,4 Wheeled Walker Comments Mobility Comments mobility around the room with SBA to IND OT- Balance Assessment Sitting Balance and Reactions Static Sitting Balance Ability Normal Dynamic Sitting Balance Ability Good M8 OT- IP Objective Assessments Start: 09/23/21 11:56 Freq: Status: Active Protocol: Document 09/23/21 11:56 CGR (Rec: 09/23/21 12:11 R [id number]) OT Gross Range of Motion Upper Extremity Range of Motion Assessment Within Functional Limits OT Strength Upper Extremity Strength Assessment Within Functional Limits Comments Strength Comments 4+ to 5/5 OT- Coordination Assessment Upper Extremity Finger to Nose Test Within Functional Limits Finger Tapping Test Within Functional Limits OT-Muscle Tone Assessment Muscle Tone WNL Yes OT Sensation Assessment Edema Edema Absent M9 OT- IP Assessment and Plan Start: 09/23/21 11:56 Freq: Status: Active Protocol: Document 09/23/21 11:56 CGR (Rec: 09/23/21 12:11 CGR [id number]) OT Summary Assessment and Plan Potential Rehabilitation Potential Excellent Analytic Complexity at Evaluation Low Summary Progress Towards Goals Progressing Toward Goals,Goals Met Assessment Summary Pt presents as a low complexity evaluation s/p admit for possible TIA. Pt is at his baseline for IADLs and functional mobility at this time. No further OT needs. Will discharge from services. Frequency of Treatment Frequency Of Treatment Discharge Discharge Recommendations OT Discharge Recommendations Home Transportation Needs at Discharge Private Vehicle
[2021-09-23] MEDS: SODIUM CHLORIDE 0.9% 1,000 ML 75 ML IV (11:18)
--- NOTE | 2021-09-23 11:50 | PT.IIE ---
Surgical History (Last Updated 09/23/21 @ 05:11 by FRANKIE Schreiber) Circumcision complication Hx of heart artery stent Medical History (Last Updated 09/23/21 @ 05:11 by FRANKIE Schreiber) Dyslipidemia Essential hypertension Type 1 diabetes Physical Therapy Inpatient Evaluation/Re-Eval M1 PT/OT-IP Prior Functional Status Start: 09/23/21 09:29 Freq: NEEDED Status: Active Protocol: Document 09/23/21 11:56 CGR (Rec: 09/23/21 12:11 CGR [id number]) Medical Review Prior Functional Status Medical History Reviewed Yes Communication Pt is an effective verbal communicator but is very [place] and typically wears hearing aides. Pt states that on this visit, he did not bring his hearing aides. Mobility and Gait Pt uses a 4ww for all mobility at baseline. Activities of Daily Living and IADL's Pt was IND in all ADLs prior to admit. Pt states that his grandson does the driving and shopping. Social History Household Members other Living Arrangements House Number of Floors (Floors) One Floor Number of Stairs To Enter/Railing? ramp to enter Home Environment High Toilet,Walk in Shower Home Equipment Front Wheel Walker,Four Wheel Walker,Straight Cane,Shower Seat with Backrest,Hand Held Shower,Grab Bars Near Toilet, Grab Bars In Shower Employment Status Retired Additional Social History Comment Pt lives with his 26 yo grand son who does all of the driving and grocery shopping. They both cook and clean. M1 PT/OT-IP Prior Functional Status Start: 09/23/21 11:56 Freq: NEEDED Status: Active Protocol: Document 09/23/21 11:56 CGR (Rec: 09/23/21 12:11 CGR [id number]) Medical Review Prior Functional Status Medical History Reviewed Yes Communication Pt is an effective verbal communicator but is very [place] and typically wears hearing aides. Pt states that on this visit, he did not bring his hearing aides. Mobility and Gait Pt uses a 4ww for all mobility at baseline. Activities of Daily Living and IADL's Pt was IND in all ADLs prior to admit. Pt states that his grandson does the driving and shopping. Social History Household Members other Living Arrangements House Number of Floors (Floors) One Floor Number of Stairs To Enter/Railing? ramp to enter Home Environment High Toilet,Walk in Shower Home Equipment Front Wheel Walker,Four Wheel Walker,Straight Cane,Shower Seat with Backrest,Hand Held Shower,Grab Bars Near Toilet, Grab Bars In Shower Employment Status Retired Additional Social History Comment Pt lives with his 26 yo grand son who does all of the driving and grocery shopping. They both cook and clean. M2 PT-IP Current Condition Start: 09/23/21 09:29 Freq: NEEDED Status: Active Protocol: Document 09/23/21 11:50 AW (Rec: 09/23/21 13:11 AW [id number]) Physical Therapy Current Condition Current Condition Evaluation Date 09/23/21 Treatment Diagnosis possible TIA; difficulty in walking Onset Date 09/22/21 M3 PT-IP Subjective Start: 09/23/21 09:29 Freq: NEEDED Status: Active Protocol: Document 09/23/21 11:50 AW (Rec: 09/23/21 13:11 AW [id number]) Subjective Physical Therapy Visit Type Type Initial Evaluation Visit Start Time 11:32 Visit Stop Time 11:50 Total Visit Minutes 18 Physical Therapy Visit Comments Patient Comments Pt is willing to participate with PT Patient Goals Return home with family support. Pt hopes to get back to his garden. Therapy Pain Assessment Pain When Pain Assessed During Mobility Pain Present Pain Present Denied Pain M4 PT-IP Mobility and Gait Start: 09/23/21 09:29 Freq: NEEDED Status: Active Protocol: Document 09/23/21 11:50 AW (Rec: 09/23/21 13:11 AW [id number]) PT-Bed Mobility Assessment Sit to Supine Sit to Supine Independent PT-Transfer Assessment Sit to and From Stand Sit to and from Stand Standby Assistance Equipment Transfer Assistive Device Gait Belt,4 Wheeled Walker Orthotic/Prosthetic Devices or Brace: No Transfers Transfer Destination Chair Transfer Technique ambulated with 4WW Comments Mobility Comments Pt was sitting up in the chair as PT arrived. He was normotensive and had no complaints. He stood SBA and used his own 4WW to ambulate in the halls a total of 150 feet. On return to the room, he transferred sit to supine on the bed in preparation for clinical office technician. He was left with echo. Gait Assessment Gait Gait Assistance Required: Standby Assistance Distance (Feet) 150 Assistive Devices Assistive Device Gait Belt,4 Wheeled Walker Orthotic/Prosthetic Devices or Brace: No Gait Deviations General Gait Pattern Decreased Stride Length, Decreased Feet Clearance, Lateral Trunk Lean,Step-to Gait Factors Limiting Gait Function Factors Limiting Gait Function Decreased Sensation,Decreased Strength Comments Gait Comments Pt has limb length discrepancy and typically wears a lift in his left shoe. At this encounter, he did not wear his shoes and gait was notable for high steppage RLE and step -to pattern. Gait with 4WW was stable and steady otherwise, requiring no more than SBA. Stair Climbing Assessment Comments Stair Climbing Comments Not assessed. Pt has ramped entry at home. PT-Balance Assessment Sitting Balance and Reactions Static Sitting Balance Ability Normal Dynamic Sitting Balance Ability Normal Standing Balance and Reactions Static Standing Balance Ability Good Dynamic Standing Balance Ability Good Device Used 4WW M5 PT-IP Objective Assessments Start: 09/23/21 09:29 Freq: NEEDED Status: Active Protocol: Document 09/23/21 11:50 AW (Rec: 09/23/21 13:11 AW [id number]) Orientation Orientation/Cognition Level of Alertness Alert Orientation Name,Month,Place,Situation Language Function Ability Hard of Hearing Safety Awareness Understands Safety Issues Gross Range of Motion Lower Extremity ROM Assessment Within Functional Limits Strength Lower Extremity Strength Assessment Bilaterally Impaired Hip 4/5 Knee 4+/5 Ankle 4/5 Coordination Assessment Gross Coordination Gross Coordination WNL Assessment Finger to Nose Test Normal Performance Pronation/Supination Test Normal Performance Foot Tapping Test Normal Performance Sensation Assessment Sensation Gross Sensation Right LE Impaired,Left LE Impaired Comments Sensation Comments Pt has neuropathy affecting bilateral feet. Other Assessments Other Other Assessments Oculomotor and vestibular screens were grossly normal. M6 PT-IP Treatment Start: 09/23/21 09:29 Freq: NEEDED Status: Active Protocol: Document 09/23/21 11:50 AW (Rec: 09/23/21 13:11 AW [id number]) Physical Therapy Treatment Education Education Provided Safety M7 PT-IP Assessment and Plan Start: 09/23/21 09:29 Freq: NEEDED Status: Active Protocol: Document 09/23/21 11:50 AW (Rec: 09/23/21 13:11 AW [id number]) PT Summary Assessment and Plan Potential Rehabilitation Potential Good Status of Condition at Evaluation Stable Summary Impairments Strength,Sensation,Gait Assessment Summary Patrick is an 86 yo man admitted with apparent left facial droop and garbled speech concerning for TIA. He is modified independent with use of 4WW for baseline mobility. On assessment today, his speech was WNL and his mobility was consistent with reported baseline. No unilateral deficits were appreciated. Coordination was WNL. No acute PT needs are identified. Pt will be safe to discharge home with family assist once medically stable. Frequency of Treatment Frequency Of Treatment Discharge Recommendations To Nursing Amount of Assist Needed Standby Assistance,1 Person Assist Discharge Recommendations PT Discharge Recommendations Home with Assistance Transportation Needs at Discharge Private Vehicle
[2021-09-23] MEDS: INSULIN LISPRO 100 UNIT/ML 3ML VIAL SUBCUT ×3 (13:01→21:45)
[2021-09-23 13:20] LABS: Troponin I 0.017 ng/mL (0.01-0.034)
--- NOTE | 2021-09-23 16:14 | CM.DANOTE ---
Patient is an 86 yo male who was admitted on 09/23/21 for Possible CVA. Pt has [employer] for insurance and his PCP is Haydee Cuba. EMR was reviewed. Per MD, pt with likely TIA and to have MRI and Echo and PT/OT/ST ordered. Per PT/OT, recommending safe d/c home with grandson assist when medically stable. SW met bedside with pt and explained role and he confirms he lives in [facility] with his grandson and pt is mostly independent with ADL's and uses a walker for ambulation and grandson drives and does most of the shopping but they both cook and clean. Pt denies any recent SNF or HH and denies any other supportive services in place. Pt confirms preference is home tonight or tomorrow and that grandson can provide transport at discharge. Pt does not anticipate any needs at this time. Plan: SW to follow for likely d/c home via family POV when medically stable and any further identified discharge planning needs. HITESH Arechiga Discharge Planning/Care Management Advanced directive, confirm from FAMILY Start: 09/23/21 05:21 Freq: Q24H Status: Active Protocol: Document 09/23/21 05:30 MW (Rec: 09/23/21 05:31 MW [id number]) Advance Directive, confirm on record Time 05:30 Person contacted pt Copy received No CM Discharge Assessment Start: 09/23/21 16:12 Freq: Status: Active Protocol: Document 09/23/21 16:12 BF (Rec: 09/23/21 16:13 BF [id number]) Discharge Planning Assessment Assigned Pre Coder HITESH Martinez Advance Directives? Yes Advance Directives on File No History Provided By Patient,Medical Record Has Patient been admitted in last 30 No days? Prior Living Arrangements House Household Members family Comment grandson lives with pt and assists when needed Type of transporation used prior to Relies on Others admit Independent with ADL's Yes Is patient alert and oriented? Yes Needs Assistance With Home Chores / Shopping Caregiver for Another No DME Already Rented / Owned FWW / Walker Barriers to Discharge No Discharge Plan Home Transportation Arrangement grandson to transport Referrals Initiated None needed Whiteboard Updated in Patient Room with Yes name and ext. # of Pre Coder Review Status In Process Please Provide Date Initial DC 09/23/21 Assessment Was Performed Next Review Type Continued Stay Review
--- NOTE | 2021-09-23 17:01 | ST.IPCSEOM ---
Visit Care Team Role Provider Type Haydee Cuba MD Family Provider Physician Specialty: Family Practice Address: [address] [place] [id number] Email: Katey Hernandez DO Emergency Provider Physician Specialty: Emergency Medicine Address: [address] [place] [address], [id number] Email: [email or web address] FRANKIE Schreiber Admit Provider Physician Attending Provider Specialty: Internal Medicine Address: [address] [place] [id number] Email: [email or web address] Past Medical History (Last Updated 09/23/21 @ 05:11 by FRANKIE Schreiber) Dyslipidemia (Medical) Essential hypertension (Medical) Type 1 diabetes (Medical) Speech-Language Pathology Swallow Evaluation FEED HOUSE SUPERVISOR Clinical Instructor Line Start: 09/23/21 17:00 Freq: Status: Active Protocol: Document 09/23/21 17:01 TARA (Rec: 09/23/21 17:01 TARA [id number]) Clinical Instructor Signature Clinical Instructor Clinical Instructor Yes FEED HOUSE SUPERVISOR Clinical Swallow Evaluation Start: 09/23/21 10:37 Freq: Status: Active Protocol: Document 09/23/21 10:37 EK (Rec: 09/23/21 11:11 EK [id number]) Clinical Swallow Evaluation Session Time Visit Start Time 09:05 Visit Stop Time 09:40 Total Visit Minutes 35 Referral Referring Provider Albertina Fisher ARNP Reason for Referral Suspected TIA Setting Assessment Location Acute Care Visit Type Note Type Initial evaluation Next Note Type Next Note Type Treatment Note Patient Information Identification Type Name,Wristband History Pt is an 86-year-old hard of hearing male who presents with a possible stroke. He lives with his daughter who stated that last night the pt seemed off, experiencing difficulty with his left hand, left facial droop, and garbled speech. Symptoms lasted under 10 minutes, completely resolved by time of arrival to the ED. He now states that he feels fine. Head CT, head and neck CTA and cxr were all reported to be negative by the ED provider. Pt denies difficulty swallowing but stated that he has had a ?dry mouth? for years and difficulty chewing dry textures so he alternates between liquids and solids while eating. Subjective Observations Pt was slightly reclined in bed upon FEED HOUSE SUPERVISOR and FEED HOUSE SUPERVISOR arrival. Repositioned to upright position for PO trials. Pt is [place] so a white board needed to be utilized to aid communication. Pt reported that he does have hearing aids but does not often use them due to them not fitting properly. Pt also has upper and lower dentures but only has his upper dentures with him at this time. Reported by Patient Current Diet Regular,Thin liquids Baseline Feeding Method Independent in self-feeding Patient Questionnaire No Objective Assessment Mental Status Alert,Responsive,Cooperative Oral Integrity WFL Dentition Dentures or partials present, Upper dentures/partials Lip Function Within normal limits Observation of Lips at Rest Symmetrical Lip Retraction Within normal limits Tongue Function Within normal limits Observations of Tongue at Rest Within normal limits Tongue Protrusion Within normal limits Tongue Lateralization Within normal limits Jaw Function Within normal limits Observations of Jaw at Rest Within normal limits Jaw Opening Within normal limits Jaw Closing Within normal limits Nasality Within normal limits Phonation Within normal limits Respiratory Sufficiency Within normal limits Comment Pt's structures appeared symmetrical during OME and over the course of swallowing assessment. Pt does have upper and lower dentures but reported that he primarily uses his upper dentures due to the lowers not fitting properly. Food and Liquid Trials Position During Assessment Upright (90 degrees),In bed Liquids Trialed Thin Solids Trialed Puree,Dysphagia Mechanical, Mechanical Soft Administration Type Straw,Self-feeding Oral Impairment Within functional limits Oral Phase Comments Pt was hesitant to trial regular texture (cracker) without both sets of teeth. He stated that he typically stays away from drier feeder food d/ t difficulty chewing and his dry mouth. With all other trials, food was masticated in a timely manner and no oral residue was noted. Pharyngeal Impairment Within functional limits Pharyngeal Phase Comments Pt initiated the swallow in a timely manner and demonstrated good awareness of deficits by stating what texture can be challenging for him. No overt signs of penetration/ aspiration were noted for these limited textures. NSG reported that pt had tolerated swallowing pills and breakfast. Fatigue/Endurance Endurance WNL Comment Endurance was WNL for limited trials. Results Pt's swallow appears to be WFL for his age and limitation of not using lower denture set. At this time, mechanical soft is recommended d/t mastication limitations. Recommended continue monitoring and further swallow assessment with regular textures with both sets of dentures. Pt's language and speech were WNL. Speech was 100% intelligible, pt appropriately answered questions that were asked on the white board as well as made jokes and discoursed about several different topics appropriately. Findings Swallowing Function Within functional limits Severity of Swallow Impairment Within normal limits Contributing Factors to Swallow Mastication inefficiency Impairment Prognosis Good Based on Cognitive status,Family support,Age,Comorbidities Impact on Safety and Functioning No limitations Recommendations Instrumental Assessment No Swallowing Treatment Yes Frequency Follow Up x1 Recommended Solids Mechanical Soft Recommended Liquids Thin Safety Precautions/Swallowing Feed only when alert,Reduce Recommendations distractions,Remain upright ( 90 degrees) during all oral intake,Upright position at least 30 minutes after meals, Small bites and sips when eating,Alternate liquids and solids Medication Recommendations As Tolerated Education Patient/Caregiver Education Described results of evaluation,Patient expressed understanding of evaluation, Patient expressed agreement with goals & treatment plans, Patient expressed understanding of safety precautions,Patient expressed understanding of feeding recommendations,Patient requires further education/ training Goals Short-term Goals Pt and family will participate in further education re: swallow strategies/importance of good fitting dentures, CVA, and FEED HOUSE SUPERVISOR scope of practice if other issues arise. Long-term Goals Pt will tolerate least restrictive diet to meet all hydration and nutritional needs.
[2021-09-23 20:48] LABS: Troponin I 0.018 ng/mL (0.01-0.034)
[2021-09-23] MEDS: ATORVASTATIN 20 MG TABLET 80 MG PO (21:45)
[2021-09-23] MEDS: INSULIN GLARGINE 100 UNIT/ML 3ML PEN 26 UNIT SUBCUT (23:19)
[2021-09-24] VITALS: BP 118/56; PULSE 73; RESP 18; TEMP 36.3; O2SAT 97
[2021-09-24 04:31] VITALS: BP 133/58; PULSE 63; RESP 18; TEMP 36.8; O2SAT 96
[2021-09-24 05:55] LABS: Add Manual Diff / Slide Review NO; Basophils Absolute Auto 100 /uL (0-100); Basophils Percent Auto 1.2 % (0-2); Eosinophils Absolute Auto 300 /uL (0-450); Eosinophils Percent Auto 5.9 % (2-4); Hematocrit 34.1 % (41-53); Lymphocytes Absolute Auto 1300 /uL (1100-4500); Lymphocytes Percent Auto 24.7 % (25-40); Mean Corpuscular HGB Conc 35.2 % (30-36); Mean Corpuscular Hemoglobin 31.1 PG (26-34); Mean Corpuscular Volume 88.4 fL (80-100); Monocytes Absolute Auto 700 /uL (0-900); Monocytes Percent Auto 13.4 % (3-14); Neutrophils Absolute Auto 2900 /uL (1500-7000); Neutrophils Percent Auto 54.8 % (50-75); Platelet Count 201 X10^3/uL (150-400); Red Blood Cell Count 3.85 X10^6/uL (4.5-5.9); White Blood Cell Count 5.4 X10^3/uL (4.5-11.0)
[2021-09-24 06:00] LABS: BUN Creatinine Ratio 25.4 (6-22); Blood Urea Nitrogen 30 mg/dL (9-20); Calcium 8.7 mg/dL (8.4-10.2); Carbon Dioxide 23 mmol/L (22-32); Chloride 104 mmol/L (98-107); Estimated Glomerular Filt Rate > 60 mL/min (>60); Glucose 194 mg/dL (80-110); HEMOLYSIS < 15 (0-50); Potassium 4.9 mmol/L (3.4-5.1); Sodium 132 mmol/L (137-145)
[2021-09-24 08:00] VITALS: BP 139/71; PULSE 79; RESP 17; TEMP 35.8; O2SAT 98
[2021-09-24] MEDS: INSULIN LISPRO 100 UNIT/ML 3ML VIAL SUBCUT ×2 (09:02→12:29)
[2021-09-24] MEDS: ASPIRIN EC 81 MG TABLET PO (09:03)
[2021-09-24] MEDS: CLOPIDOGREL 75 MG TABLET PO (09:03)
[2021-09-24] MEDS: ENOXAPARIN 40 MG/0.4 ML SYRINGE SUBCUT (09:03)
--- NOTE | 2021-09-24 10:27 | PM.DS.1 ---
History of Present Illness History of Present Illness Date Patient Seen: 09/23/21 Time Patient Seen: 04:30 Chief complaint: Suspected CVA Narrative: Patrick Buck is an 86-year-old hard of hearing male who has history of diabetes, coronary artery disease with 4 stents, presents with a possible stroke.? He lives with daughter who states that their mother has had a stroke so they are aware of signs and symptoms.? Sometime this evening around 11:00 p.m. she noted that he was a little bit off and she asked him to check his glucose.? He is right handed, but for some reason used his left hand to check his glucose and had difficulty with his left hand using the glucometer and glucose strips.? She then noticed that he had some left facial droop and garbled speech.? Symptoms lasted very briefly under 10 minutes, completely resolved by time of arrival to the ED.? He took some convincing to come to the ED for evaluation.? He now states that he feels fine.? He is not taking any aspirin or anti-platelet medication. ROS positive for urinary leakage as a result of an adult circumcision in the past year, chronic constipation he treats with stool softeners, neuropathy of both big toes he states is treated by one of his medications which he does not recall. Has had a history of surgeries to the right hip, knees which he states he needs to have the pins removed and was denied by Chelsie Brig[facility]. Denies headache, difficulty swallowing, chest pain, shortness of breath, or abdominal pain. States he normally sees a pharmacist for his diabetic medication management and was previously seeing them almost every month, and of late, has not seen and is due this week for an A1c draw. States he injects 26 units of the slow acting insulin and a sliding scale plus or minus 1 if he is below or exceeds a glucose of 150 with varying amounts with meals. Has 4 metal stents, states he recalls he has had echocardiograms, but does not remember what the results where or when last done. He sees a rheostat assembler at the OR, but does not recall their name. Head CT, head and neck CTA and cxr were all reported to me to be negative by the ED provider. Patient is afebrile, blood pressure 118/57, heart rate 85, respiratory rate 20, oxygen saturation 96% on room air he weighs 87 kg with a BMI of 24.7. He has a mild anemia with a hemoglobin hematocrit of 12.6 and 36.4 respectively, sodium is low at 130, bicarb 19, creatinine 1.84 unknown if this is his baseline, with a EGFR 35, glucose 148, A1c is pending, UA is negative for UTI, urine toxicology is negative and COVID-19 PCR is negative. Discharge Providers Provider Date of admission: 09/23/21 03:39 Discharge Date: 09/24/21 Consults: 09/23/21 03:56 Consult to Occupational Therapy Evaluate & Treat Comment: Physician Instructions: Evaluate and treat Consult to Physical Therapy Evaluate & Treat Comment: Physician Instructions: Evaluate and Treat Consult to Speech Therapy Evaluate & Treat Comment: Physician Instructions: Evaluate and treat Discharge provider: Lauren Peck Summary Hospital Course Discharge Diagnosis: TIA Hospital Course: Possible TIA- MRI negative for CVA, NIH score greater than 5 , dual antiplatellets asa + plavix ( 21 days) then asa, neurology f/u and cardiology f/u for loop recorder/holter monitoring, pt is able to walk and in his baseline physical activity Hypertension - continue home meds HLD- atorvastatin at bedtime LAURA/Dehydration - IVF, cr/bun normal at discharge Diabetes type 1, chronic, unknown if well controlled, home meds Exam Vital Signs (past 8 hours): - 09/24/21 04:31 09/24/21 08:00 Temperature 98.2 F 96.5 F L Pulse Rate 63 79 Respiratory Rate 18 17 Blood Pressure 133/58 L 139/71 Pulse Oximetry 96 98 Oxygen Flow Rate 0 0 Oxygen Delivery Method Room Air Oxygen Flow Rate 0 Const General: cooperative [facility] Head: normocephalic and atraumatic Nose: external nose normal Face and sinus: normal facial exam Mouth: oral mucosae normal Eyes General: appearance normal, both eyes and all related structures Pupils: PERRL EOM: EOM intact bilaterally Neck Neck: normal visual inspection and full ROM Chest Chest: normal inspection of the chest Resp Auscultation: clear to auscultation bilaterally Cardio Rate: regular rate Rhythm: regular rhythm GI Inspection: normal to inspection Palpation: soft and no hepatosplenomegaly Auscultation: normal bowel sounds Skin General: no rashes or lesions noted Neuro General: patient alert, patient awake, patient oriented x3, moves all extremities and CN's II-XI intact bilaterally Extrem General: normal to inspection, full ROM and no pedal edema Psych Appearance: grossly normal Objective Labs Result Diagrams: 09/24/21 05:22 09/24/21 05:22 Labs: Laboratory Results - last 24 hr 09/23/21 09/23/21 09/24/21 12:28 20:07 05:22 WBC 5.4 RBC 3.85 L Hgb 12.0 L Hct 34.1 L MCV 88.4 MCH 31.1 MCHC 35.2 RDW 14.0 Plt Count 201 Neut % (Auto) 54.8 Lymph % (Auto) 24.7 L [place] % (Auto) 13.4 Eos % (Auto) 5.9 H Baso % (Auto) 1.2 Neut # (Auto) 2900 Lymph # (Auto) 1300 [place] # (Auto) 700 Eos # (Auto) 300 Baso # (Auto) 100 Sodium Potassium Chloride Carbon Dioxide BUN Creatinine Estimated GFR BUN/Creatinine Ratio Glucose Calcium Magnesium Troponin I 0.017 0.018 09/24/21 05:22 WBC RBC Hgb Hct MCV MCH MCHC RDW Plt Count Neut % (Auto) Lymph % (Auto) [place] % (Auto) Eos % (Auto) Baso % (Auto) Neut # (Auto) Lymph # (Auto) [place] # (Auto) Eos # (Auto) Baso # (Auto) Sodium 132 L Potassium 4.9 Chloride 104 Carbon Dioxide 23 BUN 30 H Creatinine 1.18 Estimated GFR > 60 BUN/Creatinine Ratio 25.4 H Glucose 194 H Calcium 8.7 Magnesium 2.0 Troponin I [facility] Medical History (Updated 09/23/21 @ 05:11 by FRANKIE Schreiber) Dyslipidemia Essential hypertension Type 1 diabetes Surgical History (Updated 09/23/21 @ 05:11 by FRANKIE Schreiber) Circumcision complication Hx of heart artery stent Family History (Updated 09/23/21 @ 05:52 by FRANKIE Schreiber) Father Suspected cerebrovascular accident (CVA) Fall at home Cerebral brain hemorrhage Mother Failure to thrive in adult Social History household members: family Smoking Status: Never smoker alcohol intake: never Discharge Plan Discharge Plan Patient Disposition: Home Nursing Discharge Comment: f/u neurology outpatient within week Discharge orders & Medications Prescriptions: New atorvastatin 20 mg Tablet 80 mg PO BEDTIME Qty: 30 0RF clopidogrel 75 mg Tablet 75 mg PO DAILY Qty: 20 0RF aspirin 81 mg Tablet,Delayed Release (Dr/Ec) 81 mg PO DAILY Qty: 30 0RF Continued simvastatin 40 mg Tablet 40 mg PO BEDTIME metoprolol succinate 25 mg Tablet Extended Release 24 Hr 12.5 mg PO BID finasteride 5 mg Tablet 5 mg PO DAILY Follow up/Referrals: Haydee Cuba MD [Family Provider] - 09/26/21 (please refer to cardiology and neurology for f/u TIA W/U - LOOP RECORDER/hOLTER MONITORING) Discharge Data Attending Provider: Albertina Fisher VTE Deep Vein Thrombosis/Pulmonary Embolism Present on Admission: No
--- NOTE | 2021-09-24 11:02 | ST.IPDYTX ---
Visit Care Team Role Provider Type Haydee Cuba MD Family Provider Physician Specialty: Family Practice Address: [address] [place] [address], [id number] Email: Katey Hernandez DO Emergency Provider Physician Specialty: Emergency Medicine Address: [address] [place] [address], [id number] Email: [email or web address] Admit Provider Physician Attending Provider Specialty: Internal Medicine Address: [address] [place] [address], [id number] Email: [email or web address]ING [employer]ENT Dysphagia Treatment GENER[employer]ENT Clinical Instructor Line Start: 09/23/21 17:00 Freq: Status: Active Protocol: Document 09/23/21 17:01 TARA (Rec: 09/23/21 17:01 TARA [id number]) Clinical Instructor Signature Clinical Instructor Clinical Instructor Yes [employer] Dysphagia Treatment Start: 09/24/21 10:56 Freq: Status: Active Protocol: Document 09/24/21 10:56 ZS (Rec: 09/24/21 11:02 ZS [email or web address]) Dysphagia Treatment Session Time Visit Start Time 10:45 Visit Stop Time 11:00 Total Visit Minutes 15 Setting Assessment Location Acute Care Visit Type Note Type Treatment Note Patient Information Identification Type Name,ID Wristband Subjective Observations Pt was reclined in bed when GENERAL PURCHASING AGENT arrived. He was awake and bundled in blankets. Pt stated he had been cold since midnight. Treatment Treatment Activities Provided pt education regarding swallow safety strategies and fit of dentures . Answered pt questions. Pt reported he will discharge from the hospital today. Assessment Assessment of Improvement The pt was hard of hearing, but indicated understanding of importance of positioning and denture fit. He stated he uses a cream to help his dentures fit better, but stated he will sometimes overdo it and his dentures begin to rub and cause sores to form. Pt was wearing upper dentures but no lower dentures and stated he is able to eat, but does not eat anything that is hard or requires lots of chewing. Pt may benefit from additional education regarding swallow safety, but does appear to be functioning at baseline levels at this time. Diet Recommendations Recommendations Continue Current Diet Liquids Order Thin Diet Order Mechanical Soft Medication Recommendations As Tolerated Aspiration Precautions Recommended Precautions Upright at 90 Degrees, Alternate Liquids/Solids,Small Bites/Sips Treatment Plan Placement Recommendation after Discharge Home Therapy Recommendations Follow-up x1 for additional education regarding swallow safety and possible observation during meal. Dysphagia Goals The pt will safely tolerate least restrictive diet to meet his nutrition and hydration needs.
[2021-09-24 12:00] VITALS: BP 113/46; PULSE 77; RESP 16; TEMP 35.6; O2SAT 99
[2021-09-24 15:45] VITALS: BP 148/93; PULSE 105; RESP 17; TEMP 35.9; O2SAT 98
--- NOTE | 2021-09-24 17:23 | PC.NURSE ---
Discharge Note Patient A&O, VSS, RA, no complaints of pain/discomfort. Discharge information given to patient along with prescriptions, all questions/concerns addressed. PIV/TELE discontinued. Patient able to dress self and pack all belongings. Patient taken down via wheelchair to POV accompanied by daughter.
== END 2021-09-24 17:15 | disposition home or self-care (01) ==
LOC: ED 03:39 → AC 03:40
PROVIDERS: Admitting Provider Nurse Practitioner Family; Emergency Provider Emergency Medicine; Family Provider Family Medicine; Visit Provider Nurse Practitioner Family
DX: G45.9 Transient cerebral ischemic attack, unspecified (principal); N17.9 Acute kidney failure, unspecified; I10 Essential (primary) hypertension; E78.5 Hyperlipidemia, unspecified; E10.9 Type 1 diabetes mellitus without complications; I25.10 Atherosclerotic heart disease of native coronary artery without angina pectoris; Z95.5 Presence of coronary angioplasty implant and graft; Z87.891 Personal history of nicotine dependence; Z66 Do not resuscitate; Z20.822 Contact with and (suspected) exposure to COVID-19
CPT/HCPCS: 36415; 70450; 70496; 70498; 70551; 71045; 80048; 80053; 80061; 80305; 81001; 81003; 82550; 82962; 83036; 83735; 84484; 85025; 87635; 92526; 92610; 93005; 93306; 94760; 96372; 97162; 97165; 97535; 99284; 99285; C9803; G0378; J1650; J1815; Q9967